=== PATIENT | female | born 1980 | race Caucasian/White ===

== ENCOUNTER 2023-06-21 10:49 | Emergency (ER) | payer OTHER ==
[~2023-06-21] VITALS: Ht 149.9 cm; Wt 61.2 kg
[2023-06-21 10:59] VITALS: BP 139/89; PULSE 90; RESP 22; TEMP 98.2; O2SAT 99
[2023-06-21] MEDS: LIDOCAINE MPF 1% 10 MG/ML VIAL INJ ONE (11:45)
[2023-06-21] MEDS: KETOROLAC 30 MG/ML VIAL IM ONE (11:52)
[2023-06-21] MEDS ORDERED: LID5T TP (12:39)
[2023-06-21 12:58] VITALS: BP 139/89; PULSE 90; RESP 22; TEMP 98.2; O2SAT 99
== END 2023-06-21 12:58 | disposition home or self-care (01) ==
LOC: MED 10:49
DX: M54.2 Cervicalgia (principal); M54.50 Low back pain, unspecified; M79.18 Myalgia, other site; M25.512 Pain in left shoulder
CPT/HCPCS: 20552; 93005; 96372; 99284; J1885; J2001

== ENCOUNTER 2023-12-27 14:25 | Emergency (ER) | payer OTHER ==
[~2023-12-27] VITALS: Ht 149.9 cm; Wt 61.2 kg
[~2023-12-27 14:25] MED LIST: LID5T TP
[2023-12-27 14:44] VITALS: BP 129/82; PULSE 108; RESP 20; TEMP 98; O2SAT 100
== END 2023-12-27 16:40 | disposition home or self-care (01) ==
LOC: MED 14:25
DX: S90.32XA Contusion of left foot, initial encounter (principal); Z79.899 Other long term (current) drug therapy; X58.XXXA Exposure to other specified factors, initial encounter; Y92.89 Other specified places as the place of occurrence of the external cause; Y93.89 Activity, other specified; Y99.8 Other external cause status
CPT/HCPCS: 73630; 99283